=== PATIENT | female | born 2000 | race Caucasian/White ===

== ENCOUNTER 2025-09-24 04:17 | Emergency (ER) | payer MEDICAID ==
[~2025-09-24] VITALS: Ht 157.5 cm; Wt 90.3 kg
[2025-09-24 04:26] VITALS: O2SAT 100
[2025-09-24 04:54] LABS: CLARITY URINE CLEAR (CLEAR); COLOR URINE YELLOW (YELLOW); GLUCOSE URINE NEGATIVE (NEGATIVE); KETONES URINE NEGATIVE (NEGATIVE); LEUKOCYTE ESTERASE URINE 2+ (NEGATIVE); NITRITE URINE NEGATIVE (NEGATIVE); OCCULT BLOOD URINE NEGATIVE (NEGATIVE); PH URINE 6.0 (4.5-8.0); PROTEIN URINE NEGATIVE (NEGATIVE); SPECIFIC GRAVITY URINE 1.024 (1.005-1.030); UROBILINOGEN URINE 1.0 E.U./dL (0.2-1.0)
[2025-09-24 05:38] LABS: SQUAMOUS EPITHELIAL CELL URINE 1+ /lpf (RARE/1+)
[2025-09-24 05:39] LABS: WBC URINE 0-2 /hpf (0-2)
[2025-09-24 05:40] LABS: RBC URINE 0-2 /hpf (0-2)
[2025-09-24 05:41] LABS: BACTERIA URINE NONE SEEN
[2025-09-24] MEDS: ACETAMINOPHEN 325MG TABLET PO ONE (05:51)
[2025-09-24 06:28] LABS: BASOPHILS % 0.4 % (0.0-2.0); EOSINOPHILS % 3.6 % (0.0-5.0); HEMATOCRIT. 40.1 % (36.0-48.0); HEMOGLOBIN. 12.7 g/dL (12.0-16.0); LYMPHOCYTES % 42.0 % (20.0-50.0); MEAN PLATELET VOLUME 7.6 fl (7.4-10.4); MONOCYTES % 7.4 % (2.0-8.0); NEUTROPHILS % 46.6 % (40.0-76.0); PLATELET 249 x1000/uL (130-400); RED BLOOD CELL COUNT 4.90 mill/uL (4.2-5.4); RED CELL DISTRIBUTION WIDTH 13.9 % (11.6-14.6)
[2025-09-24 06:39] LABS: HCG SCREEN NEGATIVE
[2025-09-24 06:44] LABS: CREATININE 0.7 mg/dL (0.6-1.0); UREA NITROGEN BLOOD 11 mg/dL (9-23)
[2025-09-24 06:46] LABS: ASPARTATE AMINOTRANSFERASE 14 IU/L (<34); BILIRUBIN DIRECT < 0.1 mg/dL (<=3.0); BILIRUBIN TOTAL 0.3 mg/dL (0.1-1.0); PROTEIN TOTAL 7.3 g/dL (6.0-8.3)
[2025-09-24 08:16] VITALS: BP 140/70; PULSE 80; RESP 16; TEMP 36.9; O2SAT 100
== END 2025-09-24 08:26 | disposition home or self-care (01) ==
LOC: ER 04:17
DX: R10.32 Left lower quadrant pain (principal)
CPT/HCPCS: 36415; 74176; 80048; 80076; 81003; 81025; 84703; 85025; 99284